=== PATIENT | male | born 1980 | race Caucasian/White ===

== ENCOUNTER 2020-04-26 21:21 | Emergency (ER) | payer OTHER ==
[~2020-04-26] VITALS: Ht 182.9 cm; Wt 108.0 kg
[2020-04-26] MEDS ORDERED: KETOROLAC 30 MG/1 ML IM ONE (21:30)
[2020-04-26] MEDS ORDERED: KETOROLAC 30 MG/1 ML ONE (21:33)
[2020-04-26] MEDS ORDERED: PLEASE ENTER ALLERGIES MC SCH (22:00)
[2020-04-26 22:19] VITALS: BP 129/98
--- NOTE | 2020-04-26 22:31 | NUR ---
Pt alert and resting on gurney. NAD. Pt declines ice/elevation interventions.
--- NOTE | 2020-04-26 23:04 | NUR ---
Pt d/c'd to home care. Pt alert, oriented and in NAD. Pt educated on home care and follow-up. Pt VU. Pt ambulatory out of ER.
== END 2020-04-26 23:05 | disposition home or self-care (01) ==
LOC: ED 22:34
DX: S90.31XA Contusion of right foot, initial encounter (principal); X58.XXXA Exposure to other specified factors, initial encounter; Y93.89 Activity, other specified; Y92.098 Other place in other non-institutional residence as the place of occurrence of the external cause; Y99.8 Other external cause status
CPT/HCPCS: 73630; 96372; 99283; J1885

== ENCOUNTER 2020-07-29 07:11 | Emergency (ER) | payer OTHER ==
[~2020-07-29] VITALS: Ht 185.4 cm; Wt 110.6 kg
[2020-07-29 08:50] LABS: RAPID INFLUENZA A Negative (Negative)
--- NOTE | 2020-07-29 08:50 | NUR ---
assumed care of pt. pt here for n/o sinus and chest congestion x3 days. 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 pt also reports that his and children are sick a home with fever. pt is sitting up on gurney in no apparent distress. speaking full sentences without difficulty. denies cough. pt reports that he has been taking PO fluids without diffiulty and is ambulatory
[2020-07-29 08:51] LABS: RAPID INFLUENZA B Negative (Negative)
--- NOTE | 2020-07-29 09:15 | NUR ---
Fernanda EDWARDS at bedside for rosibel
[2020-07-29 09:26] VITALS: BP 128/93
== END 2020-07-29 09:29 | disposition home or self-care (01) ==
LOC: ED 07:54
DX: U07.1 COVID-19 (principal); B34.9 Viral infection, unspecified
CPT/HCPCS: 71045; 87400; 99284; U0003

== ENCOUNTER 2020-08-03 17:05 | Emergency (ER) | payer OTHER ==
[~2020-08-03] VITALS: Ht 185.4 cm; Wt 108.0 kg
[2020-08-03 18:01] LABS: BASOPHILS % (AUTO) 1 % (0-1); EOSINOPHILS % (AUTO) 4 % (1-7); LYMPHOCYTES % (AUTO) 21 % (22-44); MEAN CORPUSCULAR HEMOGLOBIN 29.5 pg (27.5-34.5); MEAN CORPUSCULAR HGB CONC 34.7 g/dL (33.2-36.2); MONOCYTES % (AUTO) 7 % (2-9); NEUTROPHILS % (AUTO) 67 % (42-75); PLATELET COUNT 243 x10^3/uL (130-400); RED BLOOD COUNT 5.94 x10^6/uL (4.38-5.82); RED CELL DISTRIBUTION WIDTH 13.1 % (9.4-14.8)
[2020-08-03 18:10] LABS: ALBUMIN 3.9 g/dL (3.4-5.0); ANION GAP 6 mmol/L (5-15); CALCIUM 8.9 mg/dL (8.5-10.1); CHLORIDE 107 mmol/L (98-107)
[2020-08-03 18:13] LABS: ALANINE AMINOTRANSFERASE 160 U/L (12-78); ALKALINE PHOSPHATASE 68 U/L (45-117); BILIRUBIN,TOTAL 0.4 mg/dL (0.2-1.0); CREATININE 1.49 mg/dL (0.7-1.3); TOTAL PROTEIN 8.1 g/dL (6.4-8.2)
[2020-08-03 18:15] LABS: MD NO
--- NOTE | 2020-08-03 18:45 | NUR ---
Pt without complaint, VS updated and WNL.
--- NOTE | 2020-08-03 19:03 | NUR ---
Report to NANCY Lemus
[2020-08-03] MEDS ORDERED: DEXAMETHASONE 4 MG TABLET ONE (19:42)
[2020-08-03 19:45] VITALS: BP 135/92
[2020-08-03] MEDS ORDERED: DEXAMETHASONE 4 MG TABLET PO ONE (20:00)
== END 2020-08-03 20:14 | disposition home or self-care (01) ==
LOC: ED 20:00
DX: U07.1 COVID-19 (principal); J40 Bronchitis, not specified as acute or chronic
CPT/HCPCS: 36415; 71045; 80053; 83605; 85025; 85379; 87040; 93005; 99285